=== PATIENT | female | born 1965 | race Caucasian/White ===

== ENCOUNTER 2017-03-29 13:09 | Emergency (ER) | payer OTHER ==
[~2017-03-29] VITALS: Ht 162.6 cm; Wt 53.5 kg
[2017-03-29 13:11] VITALS: BP 170/93; PULSE 97; RESP 20; TEMP 98.3; O2SAT 98
[2017-03-29] MEDS ORDERED: PROP10TA6 PO (13:41)
[2017-03-29] MEDS ORDERED: LIDO1PAD52 TOPICAL (13:43)
[2017-03-29] MEDS ORDERED: ACYC800T PO (13:43)
[2017-03-29] MEDS ORDERED: HYDR-3534 PO (13:43)
[2017-03-29] MEDS ORDERED: PRED20 PO (13:49)
--- NOTE | 2017-03-29 13:49 | PD ---
HPI Chief Complaint: Pain: Acute or Chronic Time Seen by Provider: 13:44 Travel History International Travel<30 days: No Contact w/Intl Traveler<30days: No Traveled to known affect area: No History of Present Illness HPI 51-year-old female that presents to the ED for evaluation of right arm pain with no injury. Per patient she's had a burning sensation like a shocking pain on the right arm to his neck for the past 2 weeks. Per patient she hasn't been much of it at that the pain seems to progress to get worse until yesterday when she started noticing she had a rash as well and she was concerned she might have been bit by something. She states that today she noticed a knot she has a rash on her forearm. Most of the rash seems to follow the arm. She denies any itchiness. Per patient the pain is severe 8 to 10. No allergies to medication. Per patient the pain is not constant but comes and goes. Feels like a burning. Per patient she had chickenpox when she was little. She denies any injuries. No falls. No neck injuries. PFSH Past Medical History Hx Anticoagulant Therapy: Yes (ASA 81MG) ?: Not Social History Alcohol Use: Yes (occ) Tobacco Use: Yes Substance Use: No Allergies-Medications (Allergen,Severity, Reaction): Coded Allergies: No Known Allergies (Unverified , 03/29/17) Reported Meds & Prescriptions Reported Meds & Active Scripts Active Lidocaine Patch 12 HR (Lidocaine) 5 % Patch 1 Patch TOPICAL DAILY PRN Remove patch after 12 hours Lortab (Hydrocodone-Acetaminophen) 7.5-325 Mg Tab 1 Tab PO Q6H PRN Acyclovir 800 Mg Tab 800 Mg PO 5 TIMES A DAY 7 Days Reported Propranolol (Propranolol HCl) 10 Mg Tab 10 Mg PO Q12HR Review of Systems Except as stated in HPI: all other systems reviewed are Neg Physical Exam Narrative GENERAL: SKIN: Warm and dry. Patient has a vesicular rash that appears to be herpetic on the right shoulder, right antecubital aspect of the arm as well as on the right shoulder. Appears to follow dermatomal distribution. Neurovascularly intact. No cervical, thoracic, lumbar spine tenderness to palpation. Full range of motion of the lower and upper extremities. HEAD: Atraumatic. Normocephalic. EYES: Pupils equal and round. No scleral icterus. No injection or drainage. ENT: No nasal bleeding or discharge. Mucous membranes pink and moist. Tongue is midline. No uvula deviation. NECK: Trachea midline. No JVD. CARDIOVASCULAR: Regular rate and rhythm. No murmurs, S3, S4. RESPIRATORY: No accessory muscle use. Clear to auscultation. Breath sounds equal bilaterally. GASTROINTESTINAL: Abdomen soft, non-tender, nondistended. Hepatic and splenic margins not palpable. MUSCULOSKELETAL: Extremities without clubbing, cyanosis, or edema. No obvious deformities. Full range of motion of the upper and lower extremities bilaterally. 2+ pulses bilaterally. NEUROLOGICAL: Awake and alert. No obvious cranial nerve deficits. Motor grossly within normal limits. Five out of 5 muscle strength in the arms and legs. Normal speech. PSYCHIATRIC: Appropriate mood and affect; insight and judgment normal. Data Data Last Documented VS Vital Signs Date Time Temp Pulse Resp B/P Pulse Ox O2 Delivery O2 Flow Rate FiO2 03/29/17 13:11 98.3 97 20 170/93 98 Room Air MDM Medical Decision Making Medical Screen Exam Complete: Yes Emergency Medical Condition: Yes Medical Record Reviewed: Yes Differential Diagnosis Shingles versus neuropathy versus normal exam Narrative Course 51-year-old female that presents to the ED for evaluation of right arm rash as well as pain. Patient was properly examined and was found to have signs and symptoms very consistent what appears to be a herpetic rash that follows dermatomal distribution. Likely shingles. Patient was reassured. At this time I recommend treating her with Lortab for pain, lidocaine patches as well as acyclovir. Patient was told that she needs to stay away from small children and females. She understands and agrees. I recommend that whenever she sees her doctor that should talk about possibly getting the shingles vaccine. Patient was told that the rash will likely worsen before it gets better. She was told to follow up closely with PCP. See ED worsening symptoms. Diagnosis Primary Impression: Shingles Qualified Code: B02.9 - Herpes zoster without complication Patient Instructions: General Instructions Additional Instructions: Take medications as prescribed. Follow-up with PCP. See ED for any worsening symptoms. Do not drink or drive while taking pain medication. Apply ice or heat as needed for pain Med/Other Pt SpecificInfo: Prescription(s) given Scripts Lidocaine Patch 12 HR 5 % Patch1 Patch TOPICAL DAILY PRN (PAIN) #1 BOX Ref 0 Remove patch after 12 hours Prov:Arya Novoa MD 03/29/17 Hydrocodone-Acetaminophen (Lortab)7.5-325 Mg Tab1 Tab PO Q6H PRN (PAIN) #20 TAB Ref 0 Prov:Arya Novoa MD 03/29/17 Acyclovir 800 Mg [id number] Mg PO 5 TIMES A DAY 7 Days Ref 0 Prov:Arya Novoa MD 03/29/17 Disposition: 01 DISCHARGE HOME Condition: Stable Ethan Ware March 29, 2017 13:49
== END 2017-03-29 14:17 | disposition home or self-care (01) ==
LOC: NEPD 13:09
DX: B02.9 Zoster without complications (principal); Z72.0 Tobacco use; Z79.82 Long term (current) use of aspirin
CPT/HCPCS: 99283